=== PATIENT | female | born 1955 | race Caucasian/White ===

== ENCOUNTER → 2017-01-19 | Outpatient (CLI) | payer OTHER | END | disposition home or self-care (01) | LOC: CFH 15:06 | PROVIDERS: ATTEND Family Medicine | DX: Z12.31 Encounter for screening mammogram for malignant neoplasm of breast (principal) | CPT/HCPCS: G0202 ==

== ENCOUNTER → 2018-01-12 | Outpatient (CLI) | payer BC, OTHER ==
[~2018-01-12] MED LIST: ALBU6.7H INH; CHOL2000 PO; ESTR0.5T PO; FLUT1DIS IH; LOVA20TA2 PO
[2018-01-12 11:07] LABS: BASOPHILS # (AUTO) 0.04 x10^3/uL (0-0.1); BASOPHILS % (AUTO) 1 % (0-1); EOSINOPHILS # (AUTO) 0.13 x10^3/uL (0-0.4); EOSINOPHILS % (AUTO) 2 % (1-7); LYMPHOCYTES # (AUTO) 1.16 x10^3/uL (1-3.4); LYMPHOCYTES % (AUTO) 16 % (22-44); MD NO; MEAN CORPUSCULAR HEMOGLOBIN 32.9 pg (27.0-34.8); MEAN CORPUSCULAR HGB CONC 33.9 g/dL (32.4-35.8); MEAN CORPUSCULAR VOLUME 97.1 fL (80-100); MEAN PLATELET VOLUME 8.6 fL (7.4-10.4); MONOCYTES # (AUTO) 0.37 x10^3/uL (0.2-0.8); MONOCYTES % (AUTO) 5 % (2-9); NEUTROPHILS # (AUTO) 5.57 x10^3/uL (1.8-6.8); NEUTROPHILS % (AUTO) 77 % (42-75); PLATELET COUNT 192 x10^3/uL (130-400); RED BLOOD COUNT 4.63 x10^6/uL (3.82-5.3); RED CELL DISTRIBUTION WIDTH 12.8 % (9.6-15.2)
[2018-01-12 11:21] LABS: ANION GAP 8 mmol/L (5-15); CALCIUM 8.8 mg/dL (8.5-10.1); CHLORIDE 105 mmol/L (98-107)
[2018-01-12 11:25] LABS: MICROSCOPIC AUTO
[2018-01-12 11:30] LABS: CULTURE INDICATED? YES
== END | disposition home or self-care (01) ==
LOC: STAR 10:25
PROVIDERS: ATTEND Obstetrics & Gynecology Gynecology
DX: Z01.818 Encounter for other preprocedural examination (principal); N81.4 Uterovaginal prolapse, unspecified; N81.6 Rectocele
CPT/HCPCS: 36415; 80048; 81001; 85025; 87086; 93005

== ENCOUNTER 2018-01-20 07:52 | Day surgery (SDC) | payer BC, OTHER ==
[~2018-01-20] VITALS: Ht 160 cm; Wt 70.5 kg
[2018-01-20 08:26] VITALS: BP 159/91
[2018-01-20] MEDS ORDERED: LACTATED RINGERS 1,000 ML IV SCH (08:48)
[2018-01-20] MEDS ORDERED: FENTANYL PF 100 MCG/2ML ONE ×2 (09:54→10:44)
[2018-01-20] MEDS ORDERED: OxyconTIN ER 10 MG TAB.ER ONE (09:54)
[2018-01-20] MEDS ORDERED: ACETAMINOPHEN 500 MG TABLET ONE (09:54)
[2018-01-20] MEDS ORDERED: MIDAZOLAM 1 MG/ML, 2ML ONE (09:54)
[2018-01-20] MEDS ORDERED: GABAPENTIN 300 MG CAPSULE ONE (09:54)
[2018-01-20] MEDS ORDERED: ONDANSETRON 2MG/ML, 2ML ONE ×2 (09:54→11:57)
[2018-01-20] MEDS ORDERED: LIDOCAINE 1%, 50ML ONE (09:57)
[2018-01-20] MEDS ORDERED: THROMBIN 5,000 UNIT VIAL TP ONE (09:57)
[2018-01-20] MEDS ORDERED: INDIGO CARMINE 0.8%, 5ML ONE (09:57)
[2018-01-20] MEDS ORDERED: EPINEPHRINE 1 MG/ML, 1ML ONE (09:57)
[2018-01-20] MEDS ORDERED: FUROSEMIDE 20 MG/2 ML ONE ×2 (09:57→10:08)
[2018-01-20] MEDS ORDERED: NEOMY/POLYMYXIN B GU IRR. 1 ML IRRIG ONE (09:58)
[2018-01-20] MEDS ORDERED: GABAPENTIN 300 MG CAPSULE PO ONE (10:00)
[2018-01-20] MEDS ORDERED: OxyconTIN ER 10 MG TAB.ER PO ONE (10:00)
[2018-01-20] MEDS ORDERED: ACETAMINOPHEN 500 MG TABLET PO ONE (10:00)
[2018-01-20] MEDS ORDERED: ONDANSETRON 2MG/ML, 2ML IVPush ONE (10:00)
[2018-01-20] MEDS ORDERED: HYDROmorphone 2 MG/ML, 1ML ONE (11:06)
[2018-01-20] MEDS ORDERED: EPHEDRINE 50 MG/ML, 1ML IVPush PRN (11:30)
[2018-01-20] MEDS ORDERED: hydrALAzine 20 MG/ML, 1ML IV PRN (11:30)
[2018-01-20] MEDS ORDERED: ALBUTEROL SULFATE 2.5 MG/3 ML NPPB PRN (11:30)
[2018-01-20] MEDS ORDERED: ONDANSETRON 2MG/ML, 2ML IVPush PRN (11:30)
[2018-01-20] MEDS ORDERED: MEPERIDINE/PF 25MG/0.5ML IVPush PRN (11:30)
[2018-01-20] MEDS ORDERED: PROMETHAZINE 12.5 MG SUPP PR PRN (11:30)
[2018-01-20] MEDS ORDERED: ALBUTEROL/IPRATROPIUM 2.5MG/0.5MG, 3 ML NPPB PRN (11:30)
[2018-01-20] MEDS ORDERED: FENTANYL PF 100 MCG/2ML IV PRN (11:30)
[2018-01-20] MEDS ORDERED: morphine SULFATE 10 MG/ML, 1ML IV PRN (11:30)
[2018-01-20] MEDS ORDERED: HYDROcodone/APAP 7.5-325MG/15ML UDC PO PRN (11:30)
[2018-01-20] MEDS ORDERED: METOPROLOL 1 MG/ML, 5ML IV PRN (11:30)
[2018-01-20] MEDS ORDERED: DIAZEPAM 5 MG/ML, 2ML IVPush PRN (11:30)
[2018-01-20] MEDS ORDERED: OXYcodone 5 MG/5 ML ORAL.SOL UDC PO PRN (11:30)
[2018-01-20] MEDS ORDERED: PROMETHAZINE 25 MG/ML, 1ML IV PRN (11:30)
[2018-01-20] MEDS ORDERED: MIDAZOLAM 1 MG/ML, 2ML IV PRN (11:30)
[2018-01-20] MEDS ORDERED: LABETALOL 5MG/ML, 20ML IV PRN (11:30)
[2018-01-20] MEDS ORDERED: ROCURONIUM 10 MG/ML,10ML ONE (11:57)
[2018-01-20] MEDS ORDERED: CEFAZOLIN 1,000 MG ONE (11:57)
[2018-01-20] MEDS ORDERED: PROPOFOL 10 MG/ML, 20ML ONE (11:57)
[2018-01-20] MEDS ORDERED: SUCCINYLCHOLINE 20 MG/ML, 10ML ONE (11:57)
[2018-01-20] MEDS ORDERED: DEXAMETHASONE 4 MG/ML, 1ML ONE (11:57)
== END 2018-01-20 17:30 ==
LOC: OUT 07:52
PROVIDERS: ATTEND Obstetrics & Gynecology Gynecology
DX: N92.0 Excessive and frequent menstruation with regular cycle (principal); K21.9 Gastro-esophageal reflux disease without esophagitis; J45.909 Unspecified asthma, uncomplicated; Z85.3 Personal history of malignant neoplasm of breast; Z90.12 Acquired absence of left breast and nipple
CPT/HCPCS: 36415; 57288; 58263; 85014; 88307; C1771; J0171; J0330; J0690; J1100; J1170; J1940; J2250; J2405; J2704; J3010; J3490; J7120

== ENCOUNTER → 2018-02-14 | Outpatient (CLI) | payer BC, OTHER | END | disposition home or self-care (01) | LOC: CFH 09:17 | PROVIDERS: ATTEND Family Medicine | DX: Z12.31 Encounter for screening mammogram for malignant neoplasm of breast (principal); Z85.3 Personal history of malignant neoplasm of breast; Z90.11 Acquired absence of right breast and nipple | CPT/HCPCS: 77067 ==

== ENCOUNTER → 2019-02-21 | Outpatient (CLI) | payer BC | END | disposition home or self-care (01) | LOC: CFH 15:33 | PROVIDERS: ATTEND Nurse Practitioner Primary Care | DX: Z12.31 Encounter for screening mammogram for malignant neoplasm of breast (principal); Z87.891 Personal history of nicotine dependence | CPT/HCPCS: 77067 ==

== ENCOUNTER → 2020-04-29 | Outpatient (CLI) | payer BC, OTHER ==
[~2020-04-29] MED LIST changes: -ALBU6.7H INH; +ALBU6.7H8 INH
== END | disposition home or self-care (01) ==
LOC: CFH 15:10
PROVIDERS: ATTEND Nurse Practitioner Primary Care
DX: Z12.31 Encounter for screening mammogram for malignant neoplasm of breast (principal)
CPT/HCPCS: 77067

== ENCOUNTER → 2021-05-08 | Outpatient (CLI) | payer BC | END | disposition home or self-care (01) | LOC: CFH 08:35 | PROVIDERS: ATTEND Physician Assistant | DX: Z12.31 Encounter for screening mammogram for malignant neoplasm of breast (principal) | CPT/HCPCS: 77063; 77067 ==